=== PATIENT | female | born 1970 | race Caucasian/White ===

== ENCOUNTER → 2017-11-04 | Outpatient (CLI) | payer OTHER ==
[~2017-11-04] MED LIST: ADVAIR 250/501 DISK IH; ALBUTEROL IH; ASPIR-LOW81 MG PO; ATIVAN0.5 MG PO; DESYREL100 MG PO; FIORICET,ESG1 TABLET PO; FLUOXETINE PO; IMITREX100 MG PO; KLONOPIN0.5 M1 PO; KLONOPIN1 MG PO; LAMICTAL150 M1 PO; LAMICTAL200 MG PO; LEVAQUIN750 MG PO; LORAZEPAM0.5 MG PO; OLANZAPINE PO; PREDNISONE10 MG PO; PRILOSEC40 MG PO; PROAIR HFA8.5 GM IH; SPIRIVA1 INHALATI IH; TRAZODONE HCL50 MG PO; TYLENOL WITH C1 EACH PO; ZOFRAN4 MG PO
== END | disposition home or self-care (01) ==
LOC: NUC 08:14
DX: R94.8 Abnormal results of function studies of other organs and systems (principal)
CPT/HCPCS: 78264; A9541

== ENCOUNTER 2018-02-15 09:13 | Day surgery (SDC) | payer OTHER ==
[~2018-02-15] VITALS: Ht 165.1 cm; Wt 65.3 kg
[~2018-02-15 09:13] MED LIST changes: +INCRUSE ELLI62.5 MCG IH
== END 2018-02-15 10:25 | disposition home or self-care (01) ==
LOC: PAIN 09:13 → SDC 09:45 → PAIN 10:25
DX: M47.816 Spondylosis without myelopathy or radiculopathy, lumbar region (principal); M51.36 Other intervertebral disc degeneration, lumbar region; J44.9 Chronic obstructive pulmonary disease, unspecified; E78.1 Pure hyperglyceridemia; K21.9 Gastro-esophageal reflux disease without esophagitis; G47.33 Obstructive sleep apnea (adult) (pediatric); F17.200 Nicotine dependence, unspecified, uncomplicated
CPT/HCPCS: J1030; J2250; S0020

== ENCOUNTER 2018-02-22 10:40 | Day surgery (SDC) | payer OTHER ==
[~2018-02-22] VITALS: Ht 167.6 cm; Wt 69.4 kg
== END 2018-02-22 12:35 | disposition home or self-care (01) ==
LOC: PAIN 10:40 → SDC 11:15 → PAIN 11:15
DX: M47.816 Spondylosis without myelopathy or radiculopathy, lumbar region (principal); M51.36 Other intervertebral disc degeneration, lumbar region; F17.210 Nicotine dependence, cigarettes, uncomplicated; F32.9 Major depressive disorder, single episode, unspecified; F41.9 Anxiety disorder, unspecified; J44.9 Chronic obstructive pulmonary disease, unspecified; G47.00 Insomnia, unspecified; G43.909 Migraine, unspecified, not intractable, without status migrainosus
CPT/HCPCS: J1030; J2250; S0020